=== PATIENT | male | born 1990 | race Hispanic/Latino ===

== ENCOUNTER 2017-07-18 22:23 | Emergency (ER) | payer SELFPAY ==
[2017-07-18] MEDS ORDERED: Lidocaine 1% w/Epinephrine 1:100K 20 ML VIAL ONE (22:34)
== END 2017-07-18 23:00 | disposition home or self-care (01) ==
LOC: SCSER 22:23
DX: L02.01 Cutaneous abscess of face (principal); F17.210 Nicotine dependence, cigarettes, uncomplicated
CPT/HCPCS: 10060; J2001

== ENCOUNTER 2018-03-20 22:48 | Emergency (ER) | payer SELFPAY ==
[2018-03-20] MEDS ORDERED: Ondansetron PF 4 MG/2 ML Vial ONE (23:10)
[2018-03-20] MEDS ORDERED: Ketorolac Tromethamine 30 MG/ML VIAL ONE (23:10)
[2018-03-20 23:43] LABS: Bilirubin Small (Negative); Blood, Urine Negative (Negative); Clarity Clear (Clear); Glucose, Urine (Dipstick) Negative (Negative); Leukocyte Negative (Negative); Nitrite Negative (Negative); Protein, Urine (Dipstick) Negative (Neg-Trace)
[2018-03-20 23:45] LABS: #Basophils 0.1 thou/uL (0.0-0.2); #Eosinphils 0.1 thou/uL (0.0-0.7); #Monocytes 0.5 thou/uL (0.11-0.59); #Neutrophils 5.2 thou/uL (1.40-6.50); %Basophils 1.2 % (0.0-1.0); %Eosinophils 1.8 % (0.0-10.0); %Lymphocytes 24.8 % (21.0-51.0); %Monocytes 6.6 % (0.0-10.0); %Neutrophils 65.7 % (42.0-75.0); Hemoglobin 16.3 g/dL (14.0-18.0); Mean Corpuscular HGB CONC 34.3 g/dL (32.0-36.0); Mean Corpuscular Hemoglobin 32.2 pg (27.0-31.0); Mean Platelet Volume 9.4 fL (7.4-10.4); Platelet Count 227 thou/uL (130-400); RBC Distribution Width 11.4 % (11.5-14.5); Red Blood Cell (RBC) Count 5.06 mill/uL (4.70-6.10); White Blood Cell (WBC) Count 7.8 thou/uL (4.8-10.8)
[2018-03-20 23:54] LABS: ALT (SGPT) 63 U/L (8-55); AST (SGOT) 31 U/L (5-34); Albumin 4.3 g/dL (3.5-5.0); Alkaline Phosphatase 106 U/L (40-150); Anion Gap 14 mmol/L (10-20); BUN (Urea Nitrogen) 5 mg/dL (8.9-20.6); Bilirubin, Total 0.7 mg/dL (0.2-1.2); Calc. Creatinine Clearance 0 mL/min (70-130); Calcium 9.4 mg/dL (7.8-10.44); Carbon Dioxide 24 mmol/L (22-29); Chloride 104 mmol/L (98-107); Estimated GFR-MDRD Greater than 90; Globulin 3.2 g/dL (2.4-3.5); Glucose 118 mg/dL (70-105); Lipase 32 U/L (8-78); Potassium 3.3 mmol/L (3.5-5.1); Protein, Total 7.5 g/dL (6.0-8.3); Sodium 139 mmol/L (136-145)
--- NOTE | 2018-03-21 07:52 | CT ---
ABDOMEN CT WITH CONTRAST PELVIC CT WITH CONTRAST: COMPARISON: 09/22/2015. HISTORY: Abdominal pain. Symptoms started 1 week ago. Right upper quadrant pain. FINDINGS: ABDOMEN CT: Linear opacities in the lung bases likely represent areas of scar and atelectasis. Heart size is wit hin normal limits. No significant pericardial fluid. The descending thoracic aorta and abdominal ao rta have a normal caliber. No periaortic fat stranding. Intra- and extrahepatic portal vein is patent. The gallbladder is contracted, likely due to nonfasti ng state. No gastrohepatic, retrocrural, or periportal lymphadenopathy. No mesenteric mass, lymphadenopathy, free air, or free fluid. Liver, spleen, pancreas, and adrenal glands have appropriate enhancement. Symmetric enhancement of the kidneys. Bilaterally, no obstructive uropathy. Limited evaluation of t he alimentary canal by the lack of oral contrast. Gastric mucosa, duodenum, and multiple normal-erik bhavna small bowel loops are noted. There is nonspecific mild thickening of the distal ileum and termin al ileum. Ileocecal junction is unremarkable. There is fatty infiltration of the right colonic muco sa which is nonspecific. There are diverticula in the colon. No evidence of diverticulitis. Normal caliber appendix. CT PELVIS: Decompressed urinary bladder, limited evaluation for bladder mucosal abnormality. No pelvic mass, ly mphadenopathy, free air, or free fluid. There are no lytic or blastic lesions in the osseous structures. 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 IMPRESSION: 1. No evidence of obstructive uropathy. 2. Normal-caliber appendix. 3. Mucosal thickening involving the distal ileum and terminal ileum which may, in part, be due to in adequate distention. Correlate clinically for an infectious or inflammatory process. The patient ma y benefit from a small bowel series. 4. Diverticulosis without evidence of diverticulitis. 5. Contracted gallbladder likely due to a nonfasting state. POS: [facility]
== END 2018-03-21 00:52 | disposition home or self-care (01) ==
LOC: SCSER 22:48
DX: K50.00 Crohn's disease of small intestine without complications (principal); F17.210 Nicotine dependence, cigarettes, uncomplicated
CPT/HCPCS: 74177; 80053; 81003; 83605; 83690; 85025; 96361; 96374; 96375; J1885; J2405